=== PATIENT | female | born 1990 | race Caucasian/White ===

== ENCOUNTER → 2017-02-28 | Outpatient (CLI) | payer OTHER ==
[~2017-02-28] MED LIST: AMOXICILLIN500 MG PO; COLACE 100MG C100 MG PO; IBUPROFEN600 MG PO; MULTIVITAMINS1 EAC1 PO; NUVARING VAGIN1 EACH VG; PROZAC20 MG PO; VENTOLIN HFA 66.7 GM INH
== END ==
LOC: LAB 08:37
DX: Z02.89 Encounter for other administrative examinations (principal)
CPT/HCPCS: 86706

== ENCOUNTER → 2017-03-31 | Outpatient (CLI) | payer BC | LOC: US 11:30 | DX: N64.4 Mastodynia (principal) | CPT/HCPCS: 76641-LT ==

== ENCOUNTER 2017-04-06 00:37 | Emergency (ER) | payer OTHER | END 2017-04-06 02:19 | disposition home or self-care (01) | LOC: ER1 00:37 | DX: S61.234A Puncture wound without foreign body of right ring finger without damage to nail, initial encounter (principal); J45.909 Unspecified asthma, uncomplicated; F41.9 Anxiety disorder, unspecified; Z91.040 Latex allergy status; W46.1XXA Contact with contaminated hypodermic needle, initial encounter | CPT/HCPCS: 36415; 80074; 87390; 99283 ==